=== PATIENT | male | born 1960 | race Two or more races ===

== ENCOUNTER 2020-01-21 05:47 | Day surgery (SDC) | payer OTHER ==
[~2020-01-21 05:47] MED LIST: ALTACE5 MG PO; METROPOLOL PO; MULTI VITAMIN1 EACH PO; NEURONTIN800 MG PO
== END 2020-01-21 10:59 | disposition home or self-care (01) ==
LOC: CIR.AMB 05:47
PROVIDERS: ATTEND Specialist
DX: D17.1 Benign lipomatous neoplasm of skin and subcutaneous tissue of trunk (principal); Z20.828 Contact with and (suspected) exposure to other viral communicable diseases

== ENCOUNTER 2022-05-02 07:06 | Outpatient (CLI) | payer OTHER | END 2022-05-02 07:08 | disposition home or self-care (01) | LOC: NUCLEAR 07:06 | PROVIDERS: ATTEND Internal Medicine Cardiovascular Disease | DX: I20.8 Other forms of angina pectoris (principal); I11.9 Hypertensive heart disease without heart failure; E78.00 Pure hypercholesterolemia, unspecified; R06.2 Wheezing | CPT/HCPCS: 78452; 93017; A9500; J0153 ==